=== PATIENT | female | born 1945 | race African-American/Black ===

== ENCOUNTER 2024-10-10 13:18 | Observation (INO) ==
--- NOTE | 2024-10-10 13:41 | Emergency Department Note ---
HPI - Dizziness General Chief Complaint: Dizziness Stated Complaint: Dizziness Time Seen by Provider: 10/10/24 13:32 Source: patient Mode of arrival: walk-in Limitations: no limitations History of Present Illness HPI Narrative: This is a 79 year old female patient that presents to the ER with c/o having dizziness on and off for 2 weeks with the dizziness being worse today. Patient denies any chest pain, SOB, back pain, abdominal pain, fever, chills, numbness, tingling, weakness of N/V/D. patient also c/o left hand tingling for 2 weeks and her right hand started tingling today MD elicited complaint: Reports dizziness and lightheadedness Description: Reports "room spinning" and off-balance Context: Reports change in body position Exacerbating factors: Reports movement/ambulation Relieving factors: Reports nothing Associated symptoms: Reports denies other symptoms Related Data Allergies Allergy/AdvReac Type Severity Reaction Status Date / Time No Known Drug Allergies Allergy Verified 10/10/24 13:31 Review of Systems Status of ROS 10 or more systems reviewed and unremark able except as noted in history and below Constitutional Denies: fever, chills, change in weight, fatigue, malaise, night sweats or change in sleep pattern Eyes Denies: change in vision, blurry vision, blind spots, light sensitivity, eye discomfort, eye discharge, dry eyes or increased production of tears Ears, nose, mouth, and throat Denies: throat pain, neck pain, throat swelling, difficulty swallowing, hoarseness, mouth pain, swelling of lips/tongue, dry mouth, ear pain, ear discharge, change in hearing, tinnitus, vertigo or nasal discharge Cardiovascular Reports: lightheadedness; Denies: chest pain, palpitations, edema, swelling of feet/ankles, shortness of breath with exertion, shortness of breath when lying down, leg pain with exertion or bluish discoloration of hands/feet Respiratory Denies: shortness of breath, cough, wheezing, stridor, pain on inspiration, change in phlegm color or coughing up blood Gastrointestinal Denies: abdominal pain, nausea, vomiting, coffee grounds in vomit, heartburn or diarrhea Genitourinary Denies: painful urination, urinary frequency, urinary urgency, urinary incontinence, blood in urine or difficulty voiding Musculoskeletal Denies: back pain, extremity pain, extremity swelling or joint pain Integumentary/Breast Denies: rash, itching, redness, skin pain, skin tenderness, skin swelling or sores Neurological Reports: dizziness and vertigo; Denies: headache, numbness in extremities, weakness in extremities, lack of coordination, confusion, behavioral changes, slurred speech, difficulty communicating thoughts, seizure- like activity or involuntary movements Psychiatric Denies: anxiety, mood swings, panic attacks, change in sleep pattern, hopelessness, loss of interest or irritability Endocrine Denies: excessive urination, excessive thirst, fatigue, cold intolerance, excessive sweating or flushing Hematologic/Lymphatic Denies: easy bruising, easy bleeding or enlarged lymph nodes Allergic/Immunologic Denies: hives, throat swelling, tongue swelling, facial swelling, wheezing or itchy eyes PFSH PFSH Medical History (Updated 10/10/24 @ 13:36 by Venice Vallejo RN) Chronic GERD Hypercholesteremia Depression Diabetes Hypertension Surgical History (Updated 10/10/24 @ 13:36 by Venice Vallejo RN) Hx of hysterectomy Social History Smoking status: never smoker Exam Constitutional: normal general appearance and no apparent distress Vital Signs - 24 hr 10/10/24 13:29 10/10/24 15:22 10/10/24 15:22 Temperature 98.5 F Pulse Rate 81 89 87 Respiratory Rate 17 Blood Pressure 183/83 187/90 197/96 Pulse Oximetry 100 Oxygen Delivery Me thod Room Air 10/10/24 15:22 Temperature Pulse Rate 99 H Respiratory Rate Blood Pressure 170/88 Pulse Oximetry Oxygen Delivery Me thod HENMT: normocephalic, head/scalp atraumatic, hearing grossly normal bilaterally, external ears normal, nasal mucous membranes normal, external nose normal, oral mucous membranes normal and oropharynx normal Eyes: PERRL, EOMs intact bilaterally, conjunctivae normal and no scleral icterus Neck/C-Spine: visual inspection normal and trachea midline Lymph: no lymphadenopathy noted Chest: inspection of chest normal and palpation of chest normal Respiratory: breath sounds equal bilaterally, normal respiratory effort, clear to auscultation bilaterally, no wheezes, no rales, no retractions, no use of accessory muscles and chest percussion normal Cardiovascular: normal heart rate noted, regular rhythm noted, no gallop, no rub, no murmur, no JVD, no clicks, peripheral pulses 2+ throughout and no additional abnormal heart sounds Gastrointestinal: abdomen normal to inspection, abdomen soft to palpation, nontender to palpation, nontender to percussion, nondistended, normoactive bowel sounds, no hepatosplenomegaly, no masses, no pulsatile mass, no ascites and no hernia Genitourinary: no CVA tenderness Back/Pelvis: spine normal to inspection Extremities: normal to inspection, normal to palpation, no tenderness, full ROM, no joint enlargement and no deformity 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 No s/s of acute distress noted Vital Signs Vital signs: Vital Signs Temperature 98.5 F 10/10/24 13:29 Pulse Rate 81 10/10/24 13:29 Respiratory Rate 17 10/10/24 13:29 Blood Pressure 183/83 10/10/24 13:29 Pulse Oximetry 100 10/10/24 13:29 Oxygen Delivery Method Room Air 10/10/24 13:29 Temperature 98.5 F 10/10/24 13:29 Pulse Rate 99 H 10/10/24 15:22 Respiratory Rate 17 10/10/24 13:29 Blood Pressure 170/88 10/10/24 15:22 Pulse Oximetry 100 10/10/24 13:29 Oxygen Delivery Method Room Air 10/10/24 13:29 Discharge Plan Discharge Patient Disposition: Admitted As Observation Condition: Stable Clinical Impression: Dizziness, Orthostatic hypotension, HTN (hypertension) Time of Disposition: 15:48
[2024-10-10 13:54] LABS: Basophils #(Absolute) Auto 0.1 (0.0-0.1); Basophils%(Percent) Auto 1.3 (0.1-0.85); Eosinophils%(Percent) Auto 0.8 % (0.4-2.8); Granulocytes % - Auto 52.2 % (47.8-71.3); Hematocrit 40.7 % (35.9-46.7); Mean Corpuscular Volume 84.8 fl (81.0-93.7); Monocytes #(Absolute)- Auto 0.4 (1.1-3.1); Monocytes %(Percent)- Auto 7.7 % (3.6-9.8); Platelet Count 329 K/uL (152-353); White Blood Count 5.7 K/uL (4.3-9.3)
[2024-10-10 14:11] LABS: Carbon Dioxide 30 mmol/L (21-32); Glucose 207 mg/dL (70-110); Potassium 3.9 mmol/L (3.6-5.2); Sodium 144 mmol/L (136-145)
[2024-10-10] MEDS ORDERED: MECLIZINE HCL 25 MG TABLET PO ONE (14:36)
[2024-10-10] MEDS: MECLIZINE HCL 25 MG TABLET PO STA (14:37)
[2024-10-10] MEDS ORDERED: 0.9 % SODIUM CHLORIDE 500 ML IV ONE (16:10)
[2024-10-10] MEDS ORDERED: cloNIDine HCL 0.1 MG TABLET PO ONE (16:10)
[2024-10-10] MEDS: cloNIDine HCL 0.1 MG TABLET PO ONE (16:11)
[2024-10-10] MEDS: 0.9 % SODIUM CHLORIDE 500 ML IV ONE (16:11)
[2024-10-10 17:17] LABS: Specific Gravity Urine 1.005 (1.001-1.035); Urine Appearance CLEAR (CLEAR); Urine Blood NEGATIVE (NEG - TRACE); Urine Color YELLOW (STRAW/YELL.); Urine Urobilinogen Normal (NORMAL)
[2024-10-10] MEDS ORDERED: bisacodyL 10 MG SUPP.RECT PR PRN (17:56)
[2024-10-10] MEDS ORDERED: ACETAMINOPHEN 500 MG TABLET PO PRN (17:56)
[2024-10-10] MEDS ORDERED: MAGNESIUM, ALUMINUM HYDROXIDE 30 ML ORAL.SUSP PO PRN (17:56)
[2024-10-11 05:38] LABS: Basophils%(Percent) Auto 0.8 (0.1-0.85); Eosinophils#(Absolute)Auto 0.1 (0.0-0.2); Eosinophils%(Percent) Auto 1.4 % (0.4-2.8); Granulocytes % - Auto 57.3 % (47.8-71.3); Granulocytes#(Absolute)- Auto 3.5 (2.3-6.0); Mean Corpuscular Volume 84.3 fl (81.0-93.7); Monocytes #(Absolute)- Auto 0.5 (1.1-3.1); Monocytes %(Percent)- Auto 7.8 % (3.6-9.8); Platelet Count 277 K/uL (152-353); White Blood Count 6.1 K/uL (4.3-9.3)
[2024-10-11 08:40] VITALS: BP 155/71; PULSE 87; RESP 21; TEMP 97.6
--- NOTE | 2024-10-11 12:07 | Discharge Summary ---
DS: Providers Provider Date of admission: 10/10/24 15:51 Primary care physician: Meaghan Arteaga DS: Summary Hospital Course Hospital Course: 1545: due to ongoing dizziness even after medications, and positive orthostatics, will admit patient to the hospital for further evaluation and treatment. No s/s of acute distress noted Time Spent with Patient Time attestation: Total time spent providing and/or coordinating discharge services: Exam Constitutional: Vital Signs - 24 hr 10/10/24 13:29 10/10/24 14:00 10/10/24 15:22 Temperature 98.5 F Pulse Rate 81 75 89 Pulse Rate [Right] Respiratory Rate 17 17 Blood Pressure 183/83 199/79 187/90 Blood Pressure [Ri ght Arm] Pulse Oximetry 100 99 Oxygen Delivery Me thod Room Air Room Air 10/10/24 15:22 10/10/24 15:22 10/10/24 15:48 Temperature Pulse Rate 87 99 H Pulse Rate [Right] Respiratory Rate Blood Pressure 197/96 170/88 182/90 Blood Pressure [Ri ght Arm] Pulse Oximetry Oxygen Delivery Me thod 10/10/24 17:44 10/10/24 17:56 10/10/24 17:59 Temperature 98.5 F 98.2 F Pulse Rate 92 H Pulse Rate [Right] 83 83 Respiratory Rate 17 18 18 Blood Pressure 182/90 Blood Pressure [Ri ght Arm] 182/78 Pulse Oximetry 99 99 99 Oxygen Delivery Me thod Room Air Room Air 10/10/24 20:00 10/10/24 23:35 10/11/24 04:00 Temperature 98.3 F 98.2 F 98.6 F Pulse Rate Pulse Rate [Right] 95 H 91 H 82 Respiratory Rate 21 20 18 Blood Pressure Blood Pressure [Ri ght Arm] 162/92 144/77 140/87 Pulse Oximetry 98 99 96 Oxygen Delivery Me thod Room Air Room Air Room Air 10/11/24 08:00 Temperature 97.6 F Pulse Rate Pulse Rate [Right] 87 Respiratory Rate 21 Blood Pressure Blood Pressure [Ri ght Arm] 155/71 Pulse Oximetry 95 Oxygen Delivery Me thod Room Air DS: Data Data Completed and Pending Labs on day of discharge: Labs from last 24 hours 10/11/24 10/10/24 10/10/24 05:15 15:15 13:26 WBC 6.1 5.7 RBC 4.3 4.8 Hgb 11.8 L 13.5 Hct 36.0 40.7 MCV 84.3 84.8 MCH 27.7 28.0 MCHC 32.9 L 33.1 RDW 12.9 13.5 Plt Count 277 329 MPV 8.6 9.1 Gran % 57.3 52.2 Lymph % (Auto) 32.7 38.0 [place] % (Auto) 7.8 7.7 Eos % (Auto) 1.4 0.8 Baso % (Auto) 0.8 1.3 H Lymph # (Auto) 2.0 2.2 [place] # (Auto) 0.5 L 0.4 L Eos # (Auto) 0.1 0.0 Baso # (Auto) 0.0 0.1 Absolute Gran (auto) 3.5 3.0 Sodium 141 144 Potassium 3.0 L 3.9 Chloride 102.0 101.0 Carbon Dioxide 29 30 Anion Gap 10.0 13.0 BUN 10 9 Creatinine 0.8 1.0 Estimated GFR 74.9 57.3 Glucose 181 H 207 H Calcium 7.8 L 9.0 Total Bilirubin 0.52 0.82 AST 15 22 ALT 14 L 21 L Alkaline Phosphatase 66 81 Troponin I High Sens <4.00 L Total Protein 6.8 8.2 Albumin 3.2 L 3.9 Urine Color Yellow Urine Appearance Clear Ur Specific [place] 1.005 Urine Protein Negative Urine Glucose (UA) Normal Urine Ketones Moderate Urine Occult Blood Negative Urine Nitrite Negative Urine Bilirubin Negative Urine Urobilinogen Normal Ur Leukocyte Esterase Negative Fluid pH 7.0 Discharge Plan Discharge Disposition: Home, Self-Care Condition: Stable Discharge Medications: Continued lisinopril-hydrochlorothiazide 20-25 mg tablet 1 tab PO DAILY metoclopramide HCl 5 mg tablet 5 mg PO TID Patient Comments: TAKE ONE TABLET BY MOUTH THREE TIMES DAILY BEFORE each meal venlafaxine 37.5 mg capsule,extended release 24hr 37.5 mg PO DAILY Patient Comments: TAKE ONE CAPSULE BY MOUTH EVERY DAY metformin 750 mg tablet extended release 24 hr 750 mg PO DAILY Patient Comments: TAKE ONE TABLET BY MOUTH EVERY DAY pantoprazole 40 mg tablet,delayed release (DR/EC) 40 mg PO DAILY Patient Comments: TAKE ONE TABLET BY MOUTH EVERY DAY felodipine 10 mg tablet extended release 24 hr 10 mg PO DAILY Patient Comments: TAKE ONE TABLET BY MOUTH EVERY DAY meloxicam 15 mg tablet 15 mg PO DAILY Patient Comments: TAKE ONE TABLET BY MOUTH EVERY DAY meclizine 12.5 mg tablet 12.5 mg PO DAILY Discharge Orders: Discharge Order (Routine); Ordered 10/11/24 Ordered By: Rod Valdes Activity: increase activity as tolerated Diet: advance to your usual diet Interventions: MED/SURG & ICU Observation Charge Sheet Last Done: 10/10/24 23:25 Forms: Portal/Health Info Access Inst Follow-Ups: Meaghan Arteaga [Primary Care Provider] -
--- NOTE | 2024-10-11 12:37 | Short Stay Summary ---
H&P: HPI History of Present Illness Chief complaint: INTRACTABLE DIZZINESS, HTN, POSITIVE ORTHOSTATIC V Narrative: Sent by PCP to ER due to acute worsening of dizziness. Had been improving over 2 weeks and got worse yesterday. ER work-up consistent with orthostasis and dehydration. No acute cardiac or infectious process. CT head/neck benign. Review of Systems Status of ROS 10 or more systems reviewed and unremark able except as noted in history and below Constitutional Denies: fever, chills, change in weight, fatigue, malaise, night sweats or change in sleep pattern Eyes Denies: change in vision, blurry vision, blind spots, light sensitivity, eye discomfort, eye discharge, dry eyes or increased production of tears Ears, nose, mouth, and throat Reports: vertigo; Denies: throat pain, neck pain, throat swelling, difficulty swallowing, hoarseness, mouth pain, swelling of lips/tongue, dry mouth, ear pain, ear discharge, change in hearing, tinnitus or nasal discharge Cardiovascular Reports: lightheadedness; Denies: chest pain, palpitations, edema, swelling of feet/ankles, shortness of breath with exertion, shortness of breath when lying down, leg pain with exertion or bluish discoloration of hands/feet Respiratory Denies: shortness of breath, cough, wheezing, stridor, pain on inspiration, change in phlegm color or coughing up blood Gastrointestinal Denies: abdominal pain, nausea, vomiting, coffee grounds in vomit, heartburn, diarrhea or difficulty swallowing Genitourinary Denies: painful urination, urinary frequency, urinary urgency, urinary incontinence, blood in urine or difficulty voiding Musculoskeletal Denies: back pain, neck pain, extremity pain, extremity swelling or joint pain Integumentary/Breast Denies: rash, itching, redness, skin pain, skin tenderness, skin swelling or sores Neurological Reports: dizziness and vertigo; Denies: headache, numbness in extremities, weakness in extremities, lack of coordination, confusion, behavioral changes, slurred speech, difficulty communicating thoughts, seizure- like activity or involuntary movements Psychiatric Denies: anxiety, mood swings, panic attacks, change in sleep pattern, hopelessness, loss of interest or irritability Endocrine Denies: excessive urination, excessive thirst, fatigue, cold intolerance, excessive sweating or flushing Hematologic/Lymphatic Denies: easy bruising, easy bleeding or enlarged lymph nodes Allergic/Immunologic Denies: hives, throat swelling, tongue swelling, facial swelling, wheezing or itchy eyes PFSH PFSH Medical History (Updated 10/11/24 @ 12:39 by Rod Valdes MD) Chronic GERD Hypercholesteremia Depression Diabetes Hypertension Surgical History (Updated 10/10/24 @ 13:36 by Venice Vallejo RN) Hx of hysterectomy Social History Smoking status: never smoker Problems where you live: no known problems Highest level of school completed/degree received: high school Meds Home Medications and Allergies Home Medications Medication Instructions Recorded Confirmed Type felodipine 10 mg tablet,extended 10 mg PO DAILY 10/10/24 10/10/24 History release 24 hr lisinopril 20 1 tab PO DAILY 10/10/24 10/10/24 History mg-hydrochlorothiazide 25 mg tablet meclizine 12.5 mg tablet 12.5 mg PO DAILY 10/10/24 10/10/24 History meloxicam 15 mg tablet 15 mg PO DAILY 10/10/24 10/10/24 History metformin 750 mg tablet,extended 750 mg PO DAILY 10/10/24 10/10/24 History release 24 hr metoclopramide HCl 5 mg tablet 5 mg PO TID 10/10/24 10/10/24 History pantoprazole 40 mg tablet,delayed 40 mg PO DAILY 10/10/24 10/10/24 History release venlafaxine 37.5 mg 37.5 mg PO DAILY 10/10/24 10/10/24 History capsule,extended release 24 hr Allergies Allergy/AdvReac Type Severity Reaction Status Date / Time No Known Drug Allergies Allergy Verified 10/10/24 13:31 Exam Constitutional: normal general appearance, no apparent distress, average body habitus, no limitations and alert Vital Signs - 24 hr 10/10/24 13:29 10/10/24 14:00 10/10/24 15:22 Temperature 98.5 F Pulse Rate 81 75 89 Pulse Rate [Right] Respiratory Rate 17 17 Blood Pressure 183/83 199/79 187/90 Blood Pressure [Ri ght Arm] Pulse Oximetry 100 99 Oxygen Delivery Me thod Room Air Room Air 10/10/24 15:22 10/10/24 15:22 10/10/24 15:48 Temperature Pulse Rate 87 99 H Pulse Rate [Right] Respiratory Rate Blood Pressure 197/96 170/88 182/90 Blood Pressure [Ri ght Arm] Pulse Oximetry Oxygen Delivery Me thod 10/10/24 17:44 10/10/24 17:56 10/10/24 17:59 Temperature 98.5 F 98.2 F Pulse Rate 92 H Pulse Rate [Right] 83 83 Respiratory Rate 17 18 18 Blood Pressure 182/90 Blood Pressure [Ri ght Arm] 182/78 Pulse Oximetry 99 99 99 Oxygen Delivery Me thod Room Air Room Air 10/10/24 20:00 10/10/24 23:35 10/11/24 04:00 Temperature 98.3 F 98.2 F 98.6 F Pulse Rate Pulse Rate [Right] 95 H 91 H 82 Respiratory Rate 21 20 18 Blood Pressure Blood Pressure [Ri ght Arm] 162/92 144/77 140/87 Pulse Oximetry 98 99 96 Oxygen Delivery Me thod Room Air Room Air Room Air 10/11/24 08:00 Temperature 97.6 F Pulse Rate Pulse Rate [Right] 87 Respiratory Rate 21 Blood Pressure Blood Pressure [Ri ght Arm] 155/71 Pulse Oximetry 95 Oxygen Delivery Me thod Room Air HENMT: normocephalic, head/scalp atraumatic, hearing grossly normal bilaterally and external ears normal Eyes: PERRL, EOMs intact bilaterally and conjunctivae normal Neck/C-Spine: visual inspection normal, trachea midline and cervical full ROM noted Respiratory: breath sounds equal bilaterally, normal respiratory effort and clear to auscultation bilaterally Cardiovascular: normal heart rate noted, regular rhythm noted and no murmur Gastrointestinal: abdomen soft to palpation, nontender to palpation, nondistended and normoactive bowel sounds Back/Pelvis: thoracic spine ROM normal and lumbar spine ROM normal Extremities: normal to inspection and full ROM 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, no movement abnormality noted, no focal motor deficit noted, speech normal, coordination normal and no fasciculations noted Psychiatry: mental status grossly normal, oriented x3, thought process normal, cooperative, affect normal, psychomotor activity normal and memory normal Assessment and Plan Assessment and Plan (1) Orthostasis: Code(s): I95.1 - Orthostatic hypotension (2) Dizziness: Code(s): R42 - Dizziness and giddiness (3) Diabetes: Qualifiers: Diabetes mellitus type: type 2 Diabetes mellitus custodial insulin use: without custodial use Diabetes mellitus complication status: with hyperglycemia Qualified Code(s): E11.65 - Type 2 diabetes mellitus with hyperglycemia Code(s): E11.9 - Type 2 diabetes mellitus without complications (4) Hypertension: Qualifiers: Hypertension type: primary hypertension Qualified Code(s): I10 - Essential (primary) hypertension Code(s): I10 - Essential (primary) hypertension Plan Admitted for fluids and monitoring. Rapidly improved and stable for discharge today. Results Labs Labs: CBC WBC 6.1 K/uL (4.3-9.3) 10/11/24 05:15 RBC 4.3 M/uL (4.00-5.50) 10/11/24 05:15 Hgb 11.8 gm/dL (12.5-15.8) L 10/11/24 05:15 Hct 36.0 % (35.9-46.7) 10/11/24 05:15 MCV 84.3 fl (81.0-93.7) 10/11/24 05:15 MCH 27.7 pg (27.6-32.2) 10/11/24 05:15 MCHC 32.9 g/dl (33.1-35.3) L 10/11/24 05:15 RDW 12.9 % (11.4-14.2) 10/11/24 05:15 Plt Count 277 K/uL (152-353) 10/11/24 05:15 MPV 8.6 fl (6.9-10.8) 10/11/24 05:15 Gran % 57.3 % (47.8-71.3) 10/11/24 05:15 Lymph % (Auto) 32.7 % (20.0-43.0) 10/11/24 05:15 [place] % (Auto) 7.8 % (3.6-9.8) 10/11/24 05:15 Eos % (Auto) 1.4 % (0.4-2.8) 10/11/24 05:15 Baso % (Auto) 0.8 (0.1-0.85) 10/11/24 05:15 Lymph # (Auto) 2.0 (1.1-3.1) 10/11/24 05:15 [place] # (Auto) 0.5 (1.1-3.1) L 10/11/24 05:15 Eos # (Auto) 0.1 (0.0-0.2) 10/11/24 05:15 Baso # (Auto) 0.0 (0.0-0.1) 10/11/24 05:15 Absolute Gran (auto) 3.5 (2.3-6.0) 10/11/24 05:15 BMP Sodium 141 mmol/L (136-145) 10/11/24 05:15 Potassium 3.0 mmol/L (3.6-5.2) L 10/11/24 05:15 Chloride 102.0 mmol/L (98-107) 10/11/24 05:15 Carbon Dioxide 29 mmol/L (21-32) 10/11/24 05:15 Anion Gap 10.0 mEq/L (4-14) 10/11/24 05:15 BUN 10 mg/dL (7-18) 10/11/24 05:15 Creatinine 0.8 mg/dL (0.6-1.3) 10/11/24 05:15 Estimated GFR 74.9 (>59.9) 10/11/24 05:15 Glucose 181 mg/dL (70-110) H 10/11/24 05:15 Calcium 7.8 mg/dL (8.5-10.1) L 10/11/24 05:15 Total Bilirubin 0.52 mg/dL (0.0-1.0) 10/11/24 05:15 AST 15 U/L (15-37) 10/11/24 05:15 ALT 14 U/L (30-65) L 10/11/24 05:15 Alkaline Phosphatase 66 U/L (50-136) 10/11/24 05:15 Total Protein 6.8 g/dL (6.4-8.2) 10/11/24 05:15 Albumin 3.2 g/dL (3.4-5.0) L 10/11/24 05:15 Cardiac Enzymes Troponin I High Sens <4.00 ng/L (4.0-60.4) L 10/10/24 13:26 Liver Function Total Bilirubin 0.52 mg/dL (0.0-1.0) 10/11/24 05:15 AST 15 U/L (15-37) 10/11/24 05:15 ALT 14 U/L (30-65) L 10/11/24 05:15 Alkaline Phosphatase 66 U/L (50-136) 10/11/24 05:15 Total Protein 6.8 g/dL (6.4-8.2) 10/11/24 05:15 Albumin 3.2 g/dL (3.4-5.0) L 10/11/24 05:15 Urine Urine Color Yellow (STRAW/YELL.) 10/10/24 15:15 Urine Appearance Clear (CLEAR) 10/10/24 15:15 Ur Specific [place] 1.005 (1.001-1.035) 10/10/24 15:15 Urine Protein Negative (NEGATIVE) 10/10/24 15:15 Urine Glucose (UA) Normal (NORMAL) 10/10/24 15:15 Urine Ketones Moderate (NEGATIVE) 10/10/24 15:15 Urine Occult Blood Negative (NEG - TRACE) 10/10/24 15:15 Urine Nitrite Negative (NEGATIVE) 10/10/24 15:15 Urine Bilirubin Negative (NEGATIVE) 10/10/24 15:15 Urine Urobilinogen Normal (NORMAL) 10/10/24 15:15 Ur Leukocyte Esterase Negative (NEGATIVE) 10/10/24 15:15 DS: Providers Provider Date of admission: 10/10/24 15:51 Primary care physician: Maeghan Arteaga Admitting clinician: Valeri Ugarte Attending physician on admission: Sol Galloway Attending physician on discharge: Rod Valdes Discharging clinician: Rod Valdes Anticipated date of discharge: 10/11/24 DS: Summary Hospital Course Hospital Course: Rapidly improved with IVFs and regular diet. Has been ambulating around room with no dizziness or weakness. Eating and drinking normally. Multiple family members at bedside. Status at Discharge Overall status at discharge: patient is back to baseline Time Spent with Patient Time attestation: Total time spent providing and/or coordinating discharge services: Time spent: less than 30 minutes Discharge Plan Discharge Disposition: Home, Self-Care Condition: Stable Discharge Medications: Continued lisinopril-hydrochlorothiazide 20-25 mg tablet 1 tab PO DAILY metoclopramide HCl 5 mg tablet 5 mg PO TID Patient Comments: TAKE ONE TABLET BY MOUTH THREE TIMES DAILY BEFORE each meal venlafaxine 37.5 mg capsule,extended release 24hr 37.5 mg PO DAILY Patient Comments: TAKE ONE CAPSULE BY MOUTH EVERY DAY metformin 750 mg tablet extended release 24 hr 750 mg PO DAILY Patient Comments: TAKE ONE TABLET BY MOUTH EVERY DAY pantoprazole 40 mg tablet,delayed release (DR/EC) 40 mg PO DAILY Patient Comments: TAKE ONE TABLET BY MOUTH EVERY DAY felodipine 10 mg tablet extended release 24 hr 10 mg PO DAILY Patient Comments: TAKE ONE TABLET BY MOUTH EVERY DAY meloxicam 15 mg tablet 15 mg PO DAILY Patient Comments: TAKE ONE TABLET BY MOUTH EVERY DAY meclizine 12.5 mg tablet 12.5 mg PO DAILY Discharge Orders: Discharge Order (Routine); Ordered 10/11/24 Ordered By: Rod Valdes Activity: increase activity as tolerated Diet: advance to your usual diet Interventions: Discharge Assessment Last Done: 10/11/24 12:13 MED/SURG & ICU Observation Charge Sheet Last Done: 10/10/24 23:25 Patient Instructions: Dehydration (GEN), Dizziness (GEN) Forms: Portal/Health Info Access Inst Follow-Ups: Meaghan Arteaga [Primary Care Provider] -
== END 2024-10-11 12:36 | disposition home or self-care (01) ==
LOC: MS 13:18 → ED 13:18 → MS 17:40
PROVIDERS: ADMIT Family Medicine; ATTEND Family Medicine